=== PATIENT | male | born 1950 | race Caucasian/White ===

== ENCOUNTER 2021-05-11 09:19 | Outpatient (REF) | payer MEDICARE, SELFPAY ==
--- NOTE | ~2021-05-11 | CT_ITS ---
EXAMINATION: CT SINUS WITHOUT CONTRAST CLINICAL INFORMATION: Nasal polyps. COMPARISON: None. TECHNIQUE: 2 mm thin axial and reformatted 2 mm thin sagittal coronal images of sinuses were obtained without contrast. This CT examination was performed using dose optimization techniques as appropriate, variously including the following: *Automated exposure control *Adjustment of mA and/or kV according to patient size (this includes techniques or standardized protocols for targeted exams where dose is matched to indication/reason for exam; i.e. extremities or head) *Use of iterative reconstruction technique DLP: 103 mGy-cm FINDINGS: FRONTAL SINUSES AND DRAINAGE PATHWAYS: There is diffuse mucoperiosteal thickening bilateral frontal sinuses with obliterated bilateral frontoethmoidal recesses. MAXILLARY SINUSES AND DRAINAGE PATHWAYS: There is diffuse opacification of maxillary sinus with likely previous functional endoscopic sinus surgery and resection of medial wall of the sinus into the nasal cavity. There is still complete opacification of left maxillofacial drainage ostium. ETHMOID SINUSES: There is complete opacification of ethmoid sinus with obliterated bilateral ostiomeatal complex. The ethmoid roofs are symmetric, with olfactory fossa depth of 0.3 cm on the right and 0.3 cm on the left. SPHENOID SINUSES AND DRAINAGE PATHWAYS: There is complete opacification of sphenoid sinus with obliteration of sphenoid ostium. There is mild thickening involving the bony sinus neumann left mastoid sinus. NASAL CAVITY/NASOPHARYNX: There is moderate mucosal thickening within the superior nasal cavity. The middle and inferior nasal cavity are aerated well. There is no nasal septal deviation/spurring. The bony neumann are intact. ADDITIONAL RELEVANT FINDINGS: No periapical disease is seen. The TMJs articulate normally. The orbits and skull base soft tissues are unremarkable. The middle ear cavities and mastoid air cells are clear. Limited evaluation demonstrates no acute intracranial findings. CT/CT sinus wo con IMPRESSION: Complete obliteration of sinuses suggestive of sinonasal polyposis and pansinusitis. There is evidence of previous FESS surgery. Moderate obliteration of superior nasal cavity airway.
== END 2021-05-11 09:20 | disposition home or self-care (01) ==
LOC: HO.CT 09:19
PROVIDERS: Visit Provider Family Medicine
DX: J33.9 Nasal polyp, unspecified (principal)
CPT/HCPCS: 70486